=== PATIENT | female | born 2000 | race Caucasian/White ===

== ENCOUNTER 2022-04-18 06:28 | Day surgery (SDC) | payer BC ==
[2022-04-17 10:14] VITALS: BMI 20.5
[2022-04-18 07:10] LABS: BHCG - Serum Negative (NEGATIVE); Pregs Control Background? CLEAR/WHITE (CLR/WHITE); Pregs Control Bar Appear? YES (CONTROL BAR)
[2022-04-18] MEDS ORDERED: Dexamethasone 20 MG/5 ML VIAL ONE (08:18)
[2022-04-18] MEDS ORDERED: Lidocaine 1% PF 5 ML VIAL ONE (08:18)
[2022-04-18] MEDS ORDERED: Ondansetron PF 4 MG/2 ML Vial ONE (08:18)
[2022-04-18] MEDS ORDERED: PROPOFOL 200 MG/20 ML VIAL ONE (08:18)
[2022-04-18] MEDS ORDERED: fentaNYL PF 100 MCG/2 ML SYRINGE ONE (08:24)
[2022-04-18] MEDS ORDERED: Ferric Subsulfate (ASTRINGYN) 8 GM VIAL ONE (08:57)
[2022-04-18] MEDS ORDERED: Meperidine HCl/PF 25 MG/ML VIAL ONE (09:07)
[2022-04-18] MEDS ORDERED: Hydrocodone-Acetamin 15 ML UDCUP ONE ×2 (10:48)
== END 2022-04-18 11:12 | disposition home or self-care (01) ==
LOC: SDC 06:28
PROVIDERS: ATTEND Specialist
PROC: 0CTPXZZ Resection of Tonsils, External Approach (ICD-10-PCS; principal; 2022-04-18)
DX: J03.91 Acute recurrent tonsillitis, unspecified (principal); J35.01 Chronic tonsillitis; J30.9 Allergic rhinitis, unspecified; Z86.16 Personal history of COVID-19; Z79.3 Long term (current) use of hormonal contraceptives; Z79.899 Other long term (current) drug therapy
CPT/HCPCS: 36415; 84703; 85014; 88304; J1100; J2175; J2405; J2704